=== PATIENT | male | born 1980 | race Two or more races ===

== ENCOUNTER 2020-07-28 11:06 | Emergency (ER) | payer MEDICAID ==
[~2020-07-28] VITALS: Ht 188 cm; Wt 94.3 kg
[2020-07-28 11:16] VITALS: BP 132/77
[2020-07-28] MEDS ORDERED: PERM60CR4 TP (11:28)
== END 2020-07-28 11:46 | disposition home or self-care (01) ==
LOC: ER 11:14
DX: B86 Scabies (principal); Z79.899 Other long term (current) drug therapy